=== PATIENT | female | born 1935 | race Caucasian/White ===

== ENCOUNTER 2018-04-11 13:06 | Inpatient (IN) | payer OTHER, MEDICARE ==
[~2018-04-11] VITALS: Ht 162.6 cm; Wt 57.0 kg
[~2018-04-11 13:06] MED LIST: ACETAMINOPHEN-1 EAC1 PO; ANTIVERT25 MG PO; ARTHROTEC 501 TABLET PO; ASPIRIN EC325 M1 PO; CHLOR-TRIMETON4 MG PO; Chlor-Trimeton PO; DILTIAZEM ER240 M1 PO; FEOSOL325 MG PO; HYDROCHLOROTHIA25 MG PO; HYDROCODON-ACE1 EAC8 PO; IMITREX100 MG PO; LANOXIN,DIGIT0.25 MG PO; LEVOTHYROXINE125 MCG PO; LIDODERM 5% P1 PATCH TD; LOMOTIL TABLET1 EACH PO; LOMOTIL2.5 MG/5 M PO; LOPRESSOR100 M1 PO; LOPRESSOR100 MG PO; Levothroid,Synthroid PO; Lopressor PO; MONTELUKAST SOD10 MG PO; NEURONTIN300 MG PO; NEURONTIN600 MG PO; OMEPRAZOLE40 M1 PO; PLAVIX75 MG PO; PRADAXA150 MG PO; PREVACID30 MG PO; QUESTRAN4 GM/PACKE PO; RANITIDINE HCL150 MG PO; RANITIDINE PO; SENOKOT S,PE1 TABLET PO; SIMVASTATIN10 M1 PO; SIMVASTATIN20 MG PO; SOMA350 MG PO; SYNTHROID125 MCG PO; THERAGRAN1 TABLET PO; Tylenol Regular Stre PO; XARELTO20 MG PO; ZANTAC150 MG PO; ZESTRIL,PRINIVI10 M1 PO; ZOCOR10 MG PO; Zocor PO; [UNRECOGNIZED DRUG - OTHER] PO
[2018-04-11 16:39] LABS: BASOPHIL (%) 0.2 % (0-1); EOSINOPHIL (%) 0.4 % (0-5); HEMATOCRIT 38.4 % (36.0-46.0); HEMOGLOBIN 12.2 G/DL (11.9-15.5); IMMATURE GRANULOCYTE (%) 0.4 % (0.0-0.7); LYMPHOCYTE (%) 18.6 % (15-42); LYMPHOCYTE COUNT 1.5 K/uL (1.0-2.8); MCH 30.4 PG (29.0-34.0); MCHC 31.8 G/DL (30.0-36.0); MCV 95.8 FL (83-99); MONOCYTE (%) 13.6 % (3-12); MONOCYTE COUNT 1.1 K/uL (0-0.8); NEUTROPHIL (%) 66.8 % (45-76); NEUTROPHIL COUNT 5.4 K/uL (1.8-6.4); PLATELET COUNT 189 K/uL (156-360); RBC DIS.WIDTH-CV 13.2 % (11.8-14.6); RED BLOOD COUNT 4.01 M/uL (3.80-5.20); WHITE BLOOD COUNT 8.1 K/uL (4.1-10.2)
[2018-04-11 16:49] LABS: ALBUMIN 3.8 g/dL (3.2-4.8); CHLORIDE 104 mEq/L (99-109); POTASSIUM 3.2 mEq/L (3.7-5.4); SODIUM 142 mEq/L (136-147)
[2018-04-11 16:51] LABS: GLUCOSE 125 mg/dL (70-99)
[2018-04-11 16:52] LABS: TOTAL PROTEIN 6.3 g/dL (6.4-8.3)
[2018-04-11 16:53] LABS: TOTAL BILIRUBIN 0.6 mg/dL (0.0-1.0)
[2018-04-11 16:55] LABS: ALKALINE PHOSPHATASE 61 IU/L (3-129); CREATININE 0.7 mg/dL (0.6-1.3); GFR ESTIMATE (CALCULATED) > 59 mL/min/
[2018-04-11 16:56] LABS: UREA NITROGEN (BUN) 21 mg/dL (9-23)
[2018-04-11 16:57] LABS: AST (GOT) 24 IU/L (2-34)
[2018-04-11] MEDS ORDERED: SYNTHROID112 MCG PO (16:57)
[2018-04-11] MEDS ORDERED: ALLEGRA ALLERG180 MG PO (16:57)
[2018-04-11 16:58] LABS: ALT (GPT) 21 IU/L (3-49)
[2018-04-11] MEDS ORDERED: CENTRUM SILVER1 EAC4 PO (16:58)
[2018-04-11] MEDS ORDERED: QUESTRAN PACKET4 GM PO (16:59)
[2018-04-11] MEDS ORDERED: LIDOCARE1 EACH TP (16:59)
[2018-04-12 00:08] VITALS: BP 140/73
[2018-04-12 03:51] VITALS: BP 127/79
[2018-04-12 07:19] LABS: HEMATOCRIT 38.5 % (36.0-46.0); HEMOGLOBIN 12.2 G/DL (11.9-15.5); MCH 29.7 PG (29.0-34.0); MCHC 31.7 G/DL (30.0-36.0); MCV 93.7 FL (83-99); PLATELET COUNT 157 K/uL (156-360); RBC DIS.WIDTH-SD 44.7 % (39-53); RED BLOOD COUNT 4.11 M/uL (3.80-5.20); WHITE BLOOD COUNT 8.6 K/uL (4.1-10.2)
[2018-04-12 07:44] VITALS: BP 140/87
[2018-04-12 15:57] VITALS: BP 128/66
[2018-04-12 23:15] VITALS: BP 140/63
[2018-04-13 07:47] VITALS: BP 162/77
[2018-04-13 11:56] VITALS: BP 131/85
[2018-04-13 16:00] VITALS: BP 155/97
[2018-04-13 19:12] VITALS: BP 170/82
[2018-04-13 23:25] VITALS: BP 134/78
[2018-04-14 03:52] VITALS: BP 128/72
[2018-04-14 07:55] VITALS: BP 135/71
[2018-04-14 15:45] VITALS: BP 140/81
[2018-04-14 23:20] VITALS: BP 101/64
[2018-04-15 08:19] VITALS: BP 106/62
[2018-04-15] MEDS ORDERED: Salonpas 4% Patch TD (08:38)
[2018-04-15] MEDS ORDERED: OXYCODONE-APAP1 EACH PO (08:38)
== END 2018-04-15 13:38 | DRG 185 ==
LOC: EME 13:06 → EDOF 22:01 → 3EAST 22:01 → EDOF 22:01 → ENRESERV 22:02 → 3EAST 23:31
PROVIDERS: Emergency Medicine; Surgery
DX: S22.42XA Multiple fractures of ribs, left side, initial encounter for closed fracture (principal); W18.39XA Other fall on same level, initial encounter; Y93.E1 Activity, personal bathing and showering; Y92.002 Bathroom of unspecified non-institutional (private) residence as the place of occurrence of the external cause; I10 Essential (primary) hypertension; E05.90 Thyrotoxicosis, unspecified without thyrotoxic crisis or storm; Z90.49 Acquired absence of other specified parts of digestive tract; Z86.73 Personal history of transient ischemic attack (TIA), and cerebral infarction without residual deficits; Z90.710 Acquired absence of both cervix and uterus; Z87.891 Personal history of nicotine dependence; Z79.01 Long term (current) use of anticoagulants
CPT/HCPCS: 70450; 71046; 71260; 72100; 72125; 72170; 74177; 80053; 85025; 85027; 86850; 86900; 86901; 94799; 99281; 99285; G0378; J1885; J2930; J3010; J7120

== ENCOUNTER 2018-04-15 13:44 | Inpatient (IN) | payer OTHER, MEDICARE ==
[~2018-04-15] VITALS: Ht 162.6 cm; Wt 57.6 kg
[~2018-04-15 13:44] MED LIST changes: +ALLEGRA ALLERG180 MG PO; +CENTRUM SILVER1 EAC4 PO; +LIDOCARE1 EACH TP; +OXYCODONE-APAP1 EACH PO; +QUESTRAN PACKET4 GM PO; +SYNTHROID112 MCG PO; +Salonpas 4% Patch TD
[2018-04-15 14:32] VITALS: BP 128/75
[2018-04-15 16:49] LABS: HEMATOCRIT 41.6 % (36.0-46.0); HEMOGLOBIN 13.2 G/DL (11.9-15.5); MCH 30.1 PG (29.0-34.0); MCHC 31.7 G/DL (30.0-36.0); NRBC (%) 0.5 /100 WBC (0-0); RBC DIS.WIDTH-CV 12.8 % (11.8-14.6); RBC DIS.WIDTH-SD 44.7 % (39-53); RED BLOOD COUNT 4.38 M/uL (3.80-5.20); WHITE BLOOD COUNT 8.4 K/uL (4.1-10.2)
[2018-04-15 16:52] LABS: PLATELET COUNT 229 K/uL (156-360)
[2018-04-15 17:14] LABS: ALBUMIN 3.5 G/DL (3.2-4.8); ALKALINE PHOSPHATASE 65 IU/L (3-129); ALT (GPT) 15 IU/L (3-49); AST (GOT) 22 IU/L (2-34); CHLORIDE 97 MEQ/L (99-109); CREATININE 0.6 MG/DL (0.6-1.3); GFR ESTIMATE (CALCULATED) > 59 mL/min/; GLUCOSE 146 mg/dL (70-99); POTASSIUM 3.8 MEQ/L (3.7-5.4); SODIUM 138 MEQ/L (136-147); TOTAL BILIRUBIN 0.5 MG/DL (0.0-1.0); TOTAL PROTEIN 5.9 G/DL (6.4-8.3); UREA NITROGEN (BUN) 14 mg/dL (9-23)
[2018-04-16 00:36] VITALS: BP 122/69
[2018-04-16 04:00] VITALS: BP 121/62
[2018-04-16 15:59] VITALS: BP 133/73
[2018-04-17 04:48] VITALS: BP 124/64
[2018-04-17 15:32] VITALS: BP 101/64
[2018-04-17 20:12] VITALS: BP 125/73
[2018-04-18 04:40] LABS: BASOPHIL (%) 0.5 % (0-1); EOSINOPHIL (%) 3.5 % (0-5); EOSINOPHIL COUNT 0.3 K/uL (0-0.3); HEMOGLOBIN 13.2 G/DL (11.9-15.5); IMMATURE GRANULOCYTE (%) 0.1 % (0.0-0.7); LYMPHOCYTE (%) 23.5 % (15-42); LYMPHOCYTE COUNT 2.1 K/uL (1.0-2.8); MCH 30.6 PG (29.0-34.0); MCV 92.8 FL (83-99); MONOCYTE (%) 12.2 % (3-12); MONOCYTE COUNT 1.1 K/uL (0-0.8); NEUTROPHIL (%) 60.2 % (45-76); NEUTROPHIL COUNT 5.3 K/uL (1.8-6.4); RBC DIS.WIDTH-CV 12.7 % (11.8-14.6); RBC DIS.WIDTH-SD 43.6 % (39-53); RED BLOOD COUNT 4.31 M/uL (3.80-5.20); WHITE BLOOD COUNT 8.7 K/uL (4.1-10.2)
[2018-04-18 04:47] LABS: ALBUMIN 3.3 g/dL (3.2-4.8); CHLORIDE 99 mEq/L (99-109); POTASSIUM 4.3 mEq/L (3.7-5.4); SODIUM 139 mEq/L (136-147)
[2018-04-18 04:49] LABS: GLUCOSE 116 mg/dL (70-99)
[2018-04-18 04:53] LABS: ALKALINE PHOSPHATASE 65 IU/L (3-129); CREATININE 0.7 mg/dL (0.6-1.3); GFR ESTIMATE (CALCULATED) > 59 mL/min/
[2018-04-18 04:54] LABS: UREA NITROGEN (BUN) 21 mg/dL (9-23)
[2018-04-18 04:56] LABS: ALT (GPT) 19 IU/L (3-49)
[2018-04-18 04:57] LABS: AST (GOT) 39 IU/L (2-34); TOTAL BILIRUBIN 0.3 mg/dL (0.0-1.0)
[2018-04-18 05:28] VITALS: BP 126/91
[2018-04-18 07:29] LABS: PLAT.SUFFICIENCY ADEQUATE; PLATELET CLUMPS PRESENT - PLATELET COUNT APPEARS ADQ.; PLATELET COUNT UNABLE TO REPORT K/uL (156-360)
[2018-04-18 15:37] VITALS: BP 117/59
[2018-04-19 06:12] VITALS: BP 110/77
[2018-04-19 15:28] VITALS: BP 104/58
[2018-04-20 06:13] VITALS: BP 130/72
[2018-04-20 16:28] VITALS: BP 108/67
[2018-04-20 21:30] VITALS: BP 122/87
[2018-04-21 03:31] VITALS: BP 118/67
[2018-04-21 05:06] VITALS: BP 118/67
[2018-04-21 15:55] VITALS: BP 108/64
[2018-04-22 05:16] VITALS: BP 135/74
[2018-04-22 15:21] VITALS: BP 131/86
[2018-04-23 04:10] VITALS: BP 142/78
[2018-04-23 15:34] VITALS: BP 115/68
[2018-04-24 04:12] VITALS: BP 139/74
[2018-04-24 15:12] VITALS: BP 113/57
[2018-04-25 06:25] VITALS: BP 147/71
[2018-04-25 15:24] VITALS: BP 125/69
[2018-04-25 15:25] VITALS: BP 125/69
[2018-04-26 05:57] VITALS: BP 134/80
[2018-04-26 15:03] VITALS: BP 122/67
[2018-04-27 07:23] VITALS: BP 132/79
[2018-04-27 08:10] LABS: HEMATOCRIT 41.3 % (36.0-46.0); HEMOGLOBIN 13.3 G/DL (11.9-15.5); MCH 30.2 PG (29.0-34.0); MCHC 32.2 G/DL (30.0-36.0); MCV 93.9 FL (83-99); PLATELET COUNT 343 K/uL (156-360); RBC DIS.WIDTH-CV 13.2 % (11.8-14.6); RBC DIS.WIDTH-SD 45.1 % (39-53); WHITE BLOOD COUNT 6.4 K/uL (4.1-10.2)
[2018-04-27 08:32] LABS: ALKALINE PHOSPHATASE 122 IU/L (3-129); ALT (GPT) 20 IU/L (3-49); AST (GOT) 20 IU/L (2-34); CHLORIDE 102 MEQ/L (99-109); CREATININE 0.6 MG/DL (0.6-1.3); GFR ESTIMATE (CALCULATED) > 59 mL/min/; GLUCOSE 120 mg/dL (70-99); POTASSIUM 3.9 MEQ/L (3.7-5.4); SODIUM 139 MEQ/L (136-147); TOTAL BILIRUBIN 0.4 MG/DL (0.0-1.0); TOTAL PROTEIN 6.4 G/DL (6.4-8.3); UREA NITROGEN (BUN) 18 mg/dL (9-23)
[2018-04-27 16:12] VITALS: BP 121/59
[2018-04-27] MEDS ORDERED: POLYETHYLENE GL17 GM PO (22:07)
[2018-04-27] MEDS ORDERED: SENNA PLUS TAB1 EACH PO (22:07)
[2018-04-28 04:49] VITALS: BP 145/63
== END 2018-04-28 14:20 | DRG 559 ==
LOC: 3WEST 13:44 → ENPENDDIS 04-28 → 3WEST 04-28 14:20
PROVIDERS: Physical Medicine & Rehabilitation Pain Medicine; Psychiatry & Neurology Neurology
PROC: F07M0ZZ Range of Motion and Joint Mobility Treatment of Musculoskeletal System - Whole Body (ICD-10-PCS; principal; 2018-04-15)
DX: S22.42XD Multiple fractures of ribs, left side, subsequent encounter for fracture with routine healing (principal); S70.00XD Contusion of unspecified hip, subsequent encounter; R27.0 Ataxia, unspecified; G93.40 Encephalopathy, unspecified; R41.89 Other symptoms and signs involving cognitive functions and awareness; R53.1 Weakness; S50.01XD Contusion of right elbow, subsequent encounter; G89.29 Other chronic pain; M54.5 Low back pain; K59.00 Constipation, unspecified; R06.02 Shortness of breath; R60.0 Localized edema; Z79.01 Long term (current) use of anticoagulants; Z86.73 Personal history of transient ischemic attack (TIA), and cerebral infarction without residual deficits
CPT/HCPCS: 80053; 85025; 85027; 94799; 97110 GO; 97530 GP